=== PATIENT | female | born 1965 | race Asian ===

== ENCOUNTER 2018-01-23 09:41 | Outpatient (CLI) | payer BC | END 2018-01-23 19:47 | disposition home or self-care (01) | LOC: MAMMO 09:41 | DX: Z12.31 Encounter for screening mammogram for malignant neoplasm of breast (principal) ==

== ENCOUNTER 2021-08-23 09:32 | Outpatient (CLI) | payer OTHER | END 2021-08-23 20:00 | disposition home or self-care (01) | LOC: MAMMO 09:32 | PROVIDERS: ATTEND Obstetrics & Gynecology | DX: N60.12 Diffuse cystic mastopathy of left breast (principal); N64.4 Mastodynia ==

== ENCOUNTER 2021-10-24 13:27 | Outpatient (CLI) | payer OTHER | END 2021-10-24 19:26 | disposition home or self-care (01) | LOC: RAD 13:27 | PROVIDERS: ATTEND Internal Medicine Sleep Medicine | DX: R06.09 Other forms of dyspnea (principal) ==

== ENCOUNTER 2021-11-06 08:27 | Outpatient (CLI) | payer OTHER | END 2021-11-06 18:55 | disposition home or self-care (01) | LOC: RESP 08:27 | PROVIDERS: ATTEND Nurse Practitioner Family | DX: J45.909 Unspecified asthma, uncomplicated (principal) ==

== ENCOUNTER 2021-11-28 13:00 | Outpatient (CLI) | payer OTHER | END 2021-11-28 18:53 | disposition home or self-care (01) | LOC: US 13:00 | PROVIDERS: ATTEND Nurse Practitioner Family | DX: Z12.31 Encounter for screening mammogram for malignant neoplasm of breast (principal); R22.1 Localized swelling, mass and lump, neck ==